=== PATIENT | female | born 1945 | race Caucasian/White ===

== ENCOUNTER 2024-04-16 15:39 | Inpatient (IN) | payer MEDICARE ==
[~2024-04-16] VITALS: Ht 160 cm; Wt 60.3 kg
[2024-04-16 20:00] VITALS: BP 128/67; PULSE 87; RESP 18; TEMP 97.8; O2SAT 97
[2024-04-16] MEDS ORDERED: ACETAMINOPHEN 325 MG TABLET PO PRN (20:30)
[2024-04-16] MEDS: DICLOFENAC SODIUM 1% 100 GM GEL [4GM] TP SCH (21:00)
[2024-04-16] MEDS ORDERED: DEXTROSE 50%-WATER 25 GM/50 ML SYRINGE IVP PRN (21:00)
[2024-04-16] MEDS: SENNOSIDES 8.6 MG TABLET PO SCH (21:00)
[2024-04-16] MEDS ORDERED: ACETAMINOPHEN 500 MG TABLET PO SCH (21:00)
[2024-04-16] MEDS: ACETAMINOPHEN 325 MG TABLET PO SCH (21:45)
[2024-04-16] MEDS: ENOXAPARIN SODIUM 40 MG/0.4 ML PF SYRINGE SQ SCH (21:56)
[2024-04-16] MEDS: DOCUSATE SODIUM 100 MG CAPSULE PO SCH (21:59)
[2024-04-16] MEDS: MELATONIN 5 MG TABLET PO PRN (21:59)
[2024-04-16] MEDS: INSULIN LISPRO 100 UNITS/ML SQ PRN (22:05)
[2024-04-16] MEDS: FAMOTIDINE 20 MG TABLET PO SCH (22:09)
[2024-04-16 23:36] VITALS: O2SAT 97
[2024-04-17 01:06] LABS: GLUCOMETER DEV NAME(LOC) 2WR.2B; GLUCOSE,POINT OF CARE 387 MG/DL (70-110)
[2024-04-17 05:39] LABS: BASOPHILS % (AUTO) 0.1 % (0.0-2.0); EOSINOPHILS % (AUTO) 0 % (1.0-6.0); HEMATOCRIT 26.6 % (36-46); HEMOGLOBIN 9.2 g/dL (12.0-16.0); LYMPHOCYTES # (AUTO) 0.7 K/uL (1.0-4.8); LYMPHOCYTES % (AUTO) 5.1 % (22.0-44.0); MEAN CORPUSCULAR HEMOGLOBIN 34.4 pg (26.0-34.0); MEAN CORPUSCULAR HGB CONC 34.8 G/dL (31.0-37.0); MEAN CORPUSCULAR VOLUME 99 fL (80-100); MONOCYTES # (AUTO) 0.5 K/uL (0.1-1.0); MONOCYTES % (AUTO) 3.3 % (2.0-9.0); NEUTROPHILS # (AUTO) 13.5 K/uL (1.8-7.7); PLATELET COUNT (AUTO) 199 K/uL (150-450); RED BLOOD CELL COUNT(AUTO) 2.68 MIL/uL (4.00-5.20); WHITE BLOOD COUNT (AUTO) 14.8 K/uL (4.5-11.0)
[2024-04-17 05:43] LABS: NEUTROPHILS % (AUTO) 91.5 % (40.0-70.0)
[2024-04-17 05:54] LABS: ALBUMIN 2.5 g/dL (3.4-5.0); BILIRUBIN,TOTAL 0.8 mg/dL (0.1-1.0); CALCIUM, TOTAL 8.7 mg/dL (8.8-10.5); CREATININE 1.03 mg/dL (0.60-1.30); POTASSIUM 4.6 mmol/L (3.5-5.1); TOTAL PROTEIN, SERUM 6.8 g/dL (6.4-8.2)
[2024-04-17 07:51] LABS: GLUCOMETER DEV NAME(LOC) 2WR.1D; GLUCOSE,POINT OF CARE 242 MG/DL (70-110)
[2024-04-17 08:00] VITALS: BP 99/57; PULSE 63; RESP 18; TEMP 97.9; O2SAT 97
[2024-04-17] MEDS: LOSARTAN POTASSIUM 50 MG TABLET PO SCH (09:00)
[2024-04-17] MEDS: ETHYL ALCOHOL 62% ANTISEPTIC NASAL SANITIZER 0.6 ML AMPUL NASAL SCH (09:59)
[2024-04-17] MEDS: ROSUVASTATIN CALCIUM 20 MG TABLET PO SCH (10:00)
[2024-04-17] MEDS: ASCORBIC ACID 500 MG TABLET PO SCH (10:00)
[2024-04-17] MEDS: MULTIVITAMINS WITH MINERALS, THERAPEUTIC TABLET PO SCH (10:00)
[2024-04-17] MEDS: CYANOCOBALAMIN 500 MCG TABLET PO SCH (10:00)
[2024-04-17] MEDS: PredniSONE 20 MG TABLET PO SCH (10:01)
[2024-04-17] MEDS: CHOLECALCIFEROL (VIT D3) 1,000 UNITS [25 MCG] TABLET PO SCH (10:01)
[2024-04-17] MEDS: SULFAMETHOX/TRIMETH DS 800-160 MG/TABLET PO SCH (10:09)
[2024-04-17] MEDS: INSULIN GLARGINE,HUM.REC.ANLOG 100 UNITS/ML SQ SCH (10:11)
[2024-04-17 12:31] LABS: GLUCOMETER DEV NAME(LOC) 2WR.2B; GLUCOSE,POINT OF CARE 243 MG/DL (70-110)
[2024-04-17 17:50] LABS: GLUCOMETER DEV NAME(LOC) 2WR.2B; GLUCOSE,POINT OF CARE 252 MG/DL (70-110)
[2024-04-17] MEDS ORDERED: ACETAMINOPHEN 500 MG TABLET PO PRN (19:45)
[2024-04-17 19:50] VITALS: BP 134/70; PULSE 76; RESP 18; TEMP 97.7; O2SAT 99
[2024-04-17 22:31] VITALS: O2SAT 99
[2024-04-18 00:41] LABS: GLUCOMETER DEV NAME(LOC) 2WR.1D; GLUCOSE,POINT OF CARE 303 MG/DL (70-110)
[2024-04-18 06:31] LABS: GLUCOMETER DEV NAME(LOC) 2WR.1D; GLUCOSE,POINT OF CARE 133 MG/DL (70-110)
[2024-04-18 08:00] VITALS: BP 112/59; PULSE 64; RESP 18; TEMP 97.7; O2SAT 100
[2024-04-18] MEDS: INSULIN GLARGINE,HUM.REC.ANLOG 100 UNITS/ML SQ SCH (09:04)
[2024-04-18 12:00] LABS: GLUCOMETER DEV NAME(LOC) 2WR.2B; GLUCOSE,POINT OF CARE 217 MG/DL (70-110)
[2024-04-18 14:33] LABS: APPEARANCE,URINE CLEAR (CLEAR); BILIRUBIN,URINE NEGATIVE (NEGATIVE); COLOR,URINE LIGHT YELLOW (YELLOW); GLUCOSE, URINE (UA) NEGATIVE (NEGATIVE); KETONES,URINE NEGATIVE (NEGATIVE); LEUKOCYTE ESTERASE ,URINE NEGATIVE (NEGATIVE); NITRATE,URINE NEGATIVE (NEGATIVE); OCCULT BLOOD,URINE NEGATIVE (NEGATIVE); PH,URINE 6.5 (5.0-8.0); PROTEIN,URINE TRACE mg/dL (NEGATIVE); SPECIFIC GRAVITIY, URINE 1.014 (1.003-1.030); UROBILINOGEN,URINE <=1.0 mg/dL (<=1.0)
[2024-04-18 17:20] LABS: GLUCOMETER DEV NAME(LOC) 2WR.1D; GLUCOSE,POINT OF CARE 189 MG/DL (70-110)
[2024-04-18 19:55] VITALS: BP 149/71; PULSE 83; RESP 18; TEMP 97.9; O2SAT 98
[2024-04-18 21:35] LABS: GLUCOMETER DEV NAME(LOC) 2WR.1D; GLUCOSE,POINT OF CARE 245 MG/DL (70-110)
[2024-04-18 23:58] VITALS: O2SAT 98
[2024-04-19 06:45] LABS: GLUCOMETER DEV NAME(LOC) 2WR.2B; GLUCOSE,POINT OF CARE 102 MG/DL (70-110)
[2024-04-19 08:00] VITALS: BP 126/60; PULSE 73; RESP 18; TEMP 97.6; O2SAT 99
[2024-04-19 11:55] LABS: GLUCOMETER DEV NAME(LOC) 2WR.2B; GLUCOSE,POINT OF CARE 201 MG/DL (70-110)
[2024-04-19 17:11] LABS: GLUCOMETER DEV NAME(LOC) 2WR.1D; GLUCOSE,POINT OF CARE 223 MG/DL (70-110)
[2024-04-19 20:01] VITALS: BP 123/60; PULSE 85; RESP 18; TEMP 97.9; O2SAT 97
[2024-04-19] MEDS: DENTURE CLEANSER TABLET [8'S] DT SCH (20:12)
[2024-04-19 23:01] LABS: GLUCOMETER DEV NAME(LOC) 2WR.1D; GLUCOSE,POINT OF CARE 243 MG/DL (70-110)
[2024-04-20 04:39] VITALS: O2SAT 97
[2024-04-20 07:11] LABS: GLUCOMETER DEV NAME(LOC) 2WR.2B; GLUCOSE,POINT OF CARE 87 MG/DL (70-110)
[2024-04-20 08:00] VITALS: BP 100/48; PULSE 75; RESP 18; TEMP 97.7; O2SAT 97
[2024-04-20] MEDS: INSULIN GLARGINE,HUM.REC.ANLOG 100 UNITS/ML SQ SCH (08:43)
[2024-04-20 12:15] LABS: GLUCOMETER DEV NAME(LOC) 2WR.2B; GLUCOSE,POINT OF CARE 141 MG/DL (70-110)
[2024-04-20 17:47] LABS: GLUCOMETER DEV NAME(LOC) 2WR.2B; GLUCOSE,POINT OF CARE 199 MG/DL (70-110)
[2024-04-20 20:00] VITALS: BP 119/64; PULSE 81; RESP 18; TEMP 97.5; O2SAT 99
[2024-04-20 21:45] LABS: GLUCOMETER DEV NAME(LOC) 2WR.2B; GLUCOSE,POINT OF CARE 164 MG/DL (70-110)
[2024-04-20 22:17] VITALS: O2SAT 99
[2024-04-21 06:56] LABS: GLUCOMETER DEV NAME(LOC) 2WR.2B; GLUCOSE,POINT OF CARE 79 MG/DL (70-110)
[2024-04-21 08:36] VITALS: BP 115/65; PULSE 69; RESP 18; TEMP 97.9; O2SAT 98
[2024-04-21 12:30] LABS: GLUCOMETER DEV NAME(LOC) 2WR.1D; GLUCOSE,POINT OF CARE 82 MG/DL (70-110)
[2024-04-21 17:21] LABS: GLUCOMETER DEV NAME(LOC) 2WR.2B; GLUCOSE,POINT OF CARE 235 MG/DL (70-110)
[2024-04-21 20:16] VITALS: BP 101/54; PULSE 82; RESP 18; TEMP 97.5; O2SAT 97
[2024-04-21] MEDS: BISACODYL 5 MG EC TABLET PO PRN (20:25)
[2024-04-21 22:11] LABS: GLUCOMETER DEV NAME(LOC) 2WR.2B; GLUCOSE,POINT OF CARE 246 MG/DL (70-110)
[2024-04-21 23:29] VITALS: O2SAT 97
[2024-04-22 06:40] LABS: GLUCOMETER DEV NAME(LOC) 2WR.1D; GLUCOSE,POINT OF CARE 122 MG/DL (70-110)
[2024-04-22 07:03] LABS: BASOPHILS % (AUTO) 0.3 % (0.0-2.0); EOSINOPHILS % (AUTO) 0.5 % (1.0-6.0); HEMATOCRIT 31.3 % (36-46); HEMOGLOBIN 10.9 g/dL (12.0-16.0); LYMPHOCYTES # (AUTO) 1.6 K/uL (1.0-4.8); LYMPHOCYTES % (AUTO) 17.1 % (22.0-44.0); MEAN CORPUSCULAR HEMOGLOBIN 34.9 pg (26.0-34.0); MEAN CORPUSCULAR HGB CONC 34.8 G/dL (31.0-37.0); MEAN CORPUSCULAR VOLUME 100 fL (80-100); MONOCYTES # (AUTO) 0.7 K/uL (0.1-1.0); NEUTROPHILS # (AUTO) 6.8 K/uL (1.8-7.7); NEUTROPHILS % (AUTO) 74.1 % (40.0-70.0); PLATELET COUNT (AUTO) 154 K/uL (150-450); RED BLOOD CELL COUNT(AUTO) 3.12 MIL/uL (4.00-5.20); RED CELL DISTRIBUTION WIDTH 13.1 % (11.5-14.5); WHITE BLOOD COUNT (AUTO) 9.2 K/uL (4.5-11.0)
[2024-04-22 07:04] LABS: RBC MORPHOLOGY COMMENT ABNORMAL RBC MORPH
[2024-04-22 08:00] VITALS: BP 119/53; PULSE 71; RESP 18; TEMP 98.4; O2SAT 97
[2024-04-22 13:25] LABS: GLUCOMETER DEV NAME(LOC) 2WR.1D; GLUCOSE,POINT OF CARE 124 MG/DL (70-110)
[2024-04-22 14:41] LABS: CALCIUM, TOTAL 8.8 mg/dL (8.8-10.5); CREATININE 0.91 mg/dL (0.60-1.30); POTASSIUM 3.5 mmol/L (3.5-5.1)
[2024-04-22] MEDS: MetFORMIN HCL 850 MG TABLET PO SCH (17:47)
[2024-04-22 18:00] LABS: GLUCOMETER DEV NAME(LOC) 2WR.1D; GLUCOSE,POINT OF CARE 180 MG/DL (70-110)
[2024-04-22 20:00] VITALS: BP 103/49; PULSE 83; RESP 18; TEMP 97.7; O2SAT 97
[2024-04-23 03:10] LABS: GLUCOMETER DEV NAME(LOC) 2WR.1D; GLUCOSE,POINT OF CARE 207 MG/DL (70-110)
[2024-04-23 07:20] LABS: GLUCOMETER DEV NAME(LOC) 2WR.1D; GLUCOSE,POINT OF CARE 78 MG/DL (70-110)
[2024-04-23 08:00] VITALS: BP 113/59; PULSE 71; RESP 18; TEMP 98; O2SAT 97
[2024-04-23 08:30] VITALS: O2SAT 97
[2024-04-23] MEDS: DOCUSATE SODIUM 250 MG CAPSULE PO SCH (08:40)
[2024-04-23 12:05] LABS: GLUCOMETER DEV NAME(LOC) 2WR.1D; GLUCOSE,POINT OF CARE 112 MG/DL (70-110)
[2024-04-23 18:20] LABS: GLUCOMETER DEV NAME(LOC) 2WR.1D; GLUCOSE,POINT OF CARE 205 MG/DL (70-110)
[2024-04-23 20:00] VITALS: BP 115/59; PULSE 81; RESP 18; TEMP 97.4; O2SAT 96
[2024-04-23 20:45] LABS: GLUCOMETER DEV NAME(LOC) 2WR.1D; GLUCOSE,POINT OF CARE 166 MG/DL (70-110)
[2024-04-24 07:51] LABS: GLUCOMETER DEV NAME(LOC) 2WR.1D; GLUCOSE,POINT OF CARE 86 MG/DL (70-110)
[2024-04-24 08:05] VITALS: BP 99/55; PULSE 76; RESP 18; TEMP 97.7; O2SAT 98
[2024-04-24 13:50] LABS: GLUCOMETER DEV NAME(LOC) 2WR.2B; GLUCOSE,POINT OF CARE 140 MG/DL (70-110)
[2024-04-24 15:44] VITALS: O2SAT 98
[2024-04-24 16:55] LABS: GLUCOMETER DEV NAME(LOC) 2WR.2B; GLUCOSE,POINT OF CARE 168 MG/DL (70-110)
[2024-04-24 20:00] VITALS: O2SAT 99
[2024-04-24 21:04] VITALS: BP 126/71; PULSE 93; RESP 16; TEMP 97.8; O2SAT 99
[2024-04-24 23:06] LABS: GLUCOMETER DEV NAME(LOC) 2WR.2B; GLUCOSE,POINT OF CARE 150 MG/DL (70-110)
[2024-04-25 07:15] LABS: GLUCOMETER DEV NAME(LOC) 2WR.1D; GLUCOSE,POINT OF CARE 81 MG/DL (70-110)
[2024-04-25 08:00] VITALS: BP 115/54; PULSE 70; RESP 18; TEMP 98; O2SAT 96
[2024-04-25 11:35] VITALS: O2SAT 96
[2024-04-25 13:15] LABS: GLUCOMETER DEV NAME(LOC) 2WR.2B; GLUCOSE,POINT OF CARE 141 MG/DL (70-110)
[2024-04-25 17:30] LABS: GLUCOMETER DEV NAME(LOC) 2WR.1D; GLUCOSE,POINT OF CARE 174 MG/DL (70-110)
[2024-04-25] MEDS: MetFORMIN HCL 500 MG TABLET PO SCH (17:30)
[2024-04-25 20:00] VITALS: BP 109/52; PULSE 81; RESP 18; TEMP 97.5; O2SAT 96
[2024-04-25 21:41] LABS: GLUCOMETER DEV NAME(LOC) 2WR.2B; GLUCOSE,POINT OF CARE 158 MG/DL (70-110)
[2024-04-26 07:10] LABS: GLUCOMETER DEV NAME(LOC) 2WR.2B; GLUCOSE,POINT OF CARE 92 MG/DL (70-110)
[2024-04-26 08:00] VITALS: BP 102/56; PULSE 75; RESP 18; TEMP 97.8; O2SAT 97
[2024-04-26 09:45] VITALS: BP 122/66; PULSE 87
[2024-04-26 13:05] LABS: GLUCOMETER DEV NAME(LOC) 2WR.2B; GLUCOSE,POINT OF CARE 129 MG/DL (70-110)
[2024-04-26 17:45] LABS: GLUCOMETER DEV NAME(LOC) 2WR.1D; GLUCOSE,POINT OF CARE 199 MG/DL (70-110)
[2024-04-26 19:37] VITALS: BP 117/52; PULSE 81; RESP 18; TEMP 97.5; O2SAT 99
[2024-04-26 23:20] LABS: GLUCOMETER DEV NAME(LOC) 2WR.1D; GLUCOSE,POINT OF CARE 174 MG/DL (70-110)
[2024-04-27 00:35] VITALS: O2SAT 99
[2024-04-27] MEDS ORDERED: SULF-261 PO ×2 (06:25→10:44)
[2024-04-27] MEDS ORDERED: MULT-248 PO (06:25)
[2024-04-27] MEDS ORDERED: CYAN500T56 PO (06:25)
[2024-04-27] MEDS ORDERED: FAMO20 PO (06:25)
[2024-04-27] MEDS ORDERED: ROSU20TA98 PO ×2 (06:25→10:44)
[2024-04-27] MEDS ORDERED: PRED-554 PO ×2 (06:25→10:44)
[2024-04-27] MEDS ORDERED: DOCU-412 PO (06:25)
[2024-04-27] MEDS ORDERED: CHOL500013 PO ×2 (06:25→10:44)
[2024-04-27] MEDS ORDERED: METF-1211 PO ×2 (06:25→10:44)
[2024-04-27] MEDS ORDERED: ASCO500 PO (06:25)
[2024-04-27] MEDS ORDERED: LOSA-382 PO ×2 (06:25→10:44)
[2024-04-27 06:51] LABS: GLUCOMETER DEV NAME(LOC) 2WR.1D; GLUCOSE,POINT OF CARE 98 MG/DL (70-110)
[2024-04-27 09:00] VITALS: BP 103/47; PULSE 69; RESP 18; TEMP 97.7; O2SAT 100
[2024-04-27 10:57] VITALS: O2SAT 100
[2024-04-27 12:36] LABS: GLUCOMETER DEV NAME(LOC) 2WR.1D; GLUCOSE,POINT OF CARE 140 MG/DL (70-110)
[2024-04-27 18:01] LABS: GLUCOMETER DEV NAME(LOC) 2WR.2B; GLUCOSE,POINT OF CARE 196 MG/DL (70-110)
[2024-04-27 19:56] VITALS: BP 112/54; PULSE 77; RESP 18; TEMP 98.1; O2SAT 97
[2024-04-27 22:31] LABS: GLUCOMETER DEV NAME(LOC) 2WR.2B; GLUCOSE,POINT OF CARE 201 MG/DL (70-110)
[2024-04-28 03:33] VITALS: O2SAT 97
[2024-04-28 07:21] LABS: GLUCOMETER DEV NAME(LOC) 2WR.2B; GLUCOSE,POINT OF CARE 93 MG/DL (70-110)
[2024-04-28 08:00] VITALS: BP 122/65; PULSE 71; RESP 18; TEMP 97.7; O2SAT 100
[2024-04-28 13:20] LABS: GLUCOMETER DEV NAME(LOC) 2WR.1D; GLUCOSE,POINT OF CARE 155 MG/DL (70-110)
== END 2024-04-28 13:30 | disposition home health service (06) | DRG 74 ==
LOC: 2WR 19:35
PROVIDERS: ADMIT Physical Medicine & Rehabilitation; ATTEND Physical Medicine & Rehabilitation
DX: E11.42 Type 2 diabetes mellitus with diabetic polyneuropathy (principal); G82.20 Paraplegia, unspecified; D84.9 Immunodeficiency, unspecified; E46 Unspecified protein-calorie malnutrition; E87.1 Hypo-osmolality and hyponatremia; G72.0 Drug-induced myopathy; Z74.09 Other reduced mobility; D63.8 Anemia in other chronic diseases classified elsewhere; E53.8 Deficiency of other specified B group vitamins; I10 Essential (primary) hypertension; D53.9 Nutritional anemia, unspecified; E61.0 Copper deficiency; E78.5 Hyperlipidemia, unspecified; F43.20 Adjustment disorder, unspecified; M85.80 Other specified disorders of bone density and structure, unspecified site; H91.93 Unspecified hearing loss, bilateral; M21.371 Foot drop, right foot; R53.1 Weakness; M48.061 Spinal stenosis, lumbar region without neurogenic claudication; Z68.23 Body mass index [BMI] 23.0-23.9, adult; R26.2 Difficulty in walking, not elsewhere classified; R53.81 Other malaise; T38.0X5A Adverse effect of glucocorticoids and synthetic analogues, initial encounter; E87.8 Other disorders of electrolyte and fluid balance, not elsewhere classified; M47.896 Other spondylosis, lumbar region; M79.604 Pain in right leg; Z91.81 History of falling; Z88.8 Allergy status to other drugs, medicaments and biological substances; Z83.3 Family history of diabetes mellitus; Z82.3 Family history of stroke; Z87.891 Personal history of nicotine dependence; Z80.2 Family history of malignant neoplasm of other respiratory and intrathoracic organs; Z82.49 Family history of ischemic heart disease and other diseases of the circulatory system; Y92.89 Other specified places as the place of occurrence of the external cause
CPT/HCPCS: 80048; 80053; 81003; 82962; 85025; 87081; 97110; 97112; 97116; 97150; 97163; 97167; 97530; 97535; 99366; J1650; J1815